=== PATIENT | male | born 1975 | race Two or more races ===

== ENCOUNTER 2017-05-26 16:14 | Emergency (ER) | payer OTHER ==
[~2017-05-26] VITALS: Ht 165.1 cm; Wt 77.7 kg
[2017-05-26] MEDS ORDERED: NIZORAL 2% CREA15 GM TP (17:05)
[2017-05-26] MEDS ORDERED: DESONIDE15 GM TP (17:05)
[2017-05-26 17:44] VITALS: BP 128/74
== END 2017-05-26 17:51 | disposition home or self-care (01) ==
LOC: EME 16:14
DX: R21 Rash and other nonspecific skin eruption (principal); L30.9 Dermatitis, unspecified; Z88.0 Allergy status to penicillin; F17.200 Nicotine dependence, unspecified, uncomplicated
CPT/HCPCS: 99281; 99284

== ENCOUNTER 2017-05-30 09:54 | Emergency (ER) | payer OTHER ==
[~2017-05-30] VITALS: Ht 165.1 cm; Wt 78.4 kg
[~2017-05-30 09:54] MED LIST: DESONIDE15 GM TP; NIZORAL 2% CREA15 GM TP
[2017-05-30 09:58] VITALS: BP 120/78
[2017-05-30] MEDS ORDERED: MOMETASONE FURO45 GM TP (10:49)
== END 2017-05-30 11:03 | disposition home or self-care (01) ==
LOC: EME 09:54
DX: L71.9 Rosacea, unspecified (principal); Z76.0 Encounter for issue of repeat prescription; F17.200 Nicotine dependence, unspecified, uncomplicated; Z88.0 Allergy status to penicillin
CPT/HCPCS: 99281; 99283